=== PATIENT | female | born 1990 | race Caucasian/White ===

== ENCOUNTER 2019-04-27 06:57 | Day surgery (SDC) | payer OTHER ==
[~2019-04-27] VITALS: Ht 157.5 cm; Wt 59.5 kg
[2019-04-27] VITALS (16 sets, daily range): BP systolic 109–138; BP diastolic 50–72; PULSE 71–110; RESP 16–61; Ht 157.5 cm; Wt 59.5 kg
[~2019-04-27 06:57] MED LIST: IBUP-1542 PO; NO MEDS
[2019-04-27] MEDS ORDERED: ACETAMINOPHEN 500 MG TAB ONE (08:13)
[2019-04-27] MEDS ORDERED: ONDANSETRON 4 MG INJ ONE (08:20)
[2019-04-27] MEDS ORDERED: morphine 2 MG INJ IV PRN ×2 (08:30)
[2019-04-27] MEDS ORDERED: ONDANSETRON 4 MG INJ IV PRN (08:30)
[2019-04-27] MEDS ORDERED: EPHEDrine 25 MG/5 ML SYG IV PRN (08:30)
[2019-04-27] MEDS ORDERED: KETOROLAC 15 MG INJ IV PRN (08:30)
[2019-04-27] MEDS ORDERED: OXYCODONE/ACETAMINOPHEN (5/325) TAB PO PRN ×2 (08:30)
[2019-04-27] MEDS ORDERED: LEVALBUTEROL (NEB) 0.63 MG/3 ML AMP HHN PRN (08:30)
[2019-04-27] MEDS ORDERED: HYDROmorphONE 1 MG/5 ML IV SYRINGE IV PRN ×3 (08:30)
[2019-04-27] MEDS ORDERED: FENTAnyl 50 MCG/ML VIAL IV PRN ×2 (08:30)
[2019-04-27] MEDS ORDERED: ATROPINE 1 MG/10 ML SYRINGE IV PRN (08:30)
[2019-04-27] MEDS ORDERED: LABETALOL HCL 20MG INJ IV PRN (08:30)
[2019-04-27] MEDS ORDERED: ALBUTEROL 0.083% (NEB) 2.5 MG/3 ML AMP HHN PRN (08:30)
[2019-04-27] MEDS ORDERED: ACETAMINOPHEN 500 MG TAB PO ONE (08:30)
[2019-04-27] MEDS ORDERED: hydrALAzine 20 MG INJ IV PRN (08:30)
[2019-04-27] MEDS ORDERED: DIPHENHYDRAMINE 50 MG INJ IV PRN (08:30)
[2019-04-27] MEDS ORDERED: PROPOFOL 20 ML ONE (09:06)
[2019-04-27] MEDS ORDERED: MIDAZOLAM 1 MG/ML 2 ML INJ ONE (09:06)
[2019-04-27] MEDS ORDERED: CEFAZOLIN 1 GM INJ ONE (09:06)
[2019-04-27] MEDS ORDERED: LIDOCAINE 2% (SDV) 5 ML INJ ONE (09:06)
[2019-04-27] MEDS ORDERED: FAMOTIDINE 20 MG INJ ONE (09:07)
[2019-04-27] MEDS ORDERED: FENTAnyl 50 MCG/ML VIAL ONE (09:07)
[2019-04-27] MEDS ORDERED: DEXAMETHASONE 4 MG/ML 5 ML INJ ONE (09:07)
[2019-04-27] MEDS ORDERED: EPHEDrine 25 MG/5 ML SYG ONE (09:53)
== END 2019-04-27 12:16 | disposition home or self-care (01) ==
LOC: SDS 06:57
PROVIDERS: ATTEND Obstetrics & Gynecology
DX: O02.1 Missed abortion (principal)
CPT/HCPCS: 59820; 76817; 80053; 85025; 86850; 86900; 86901; 88305; J0690; J1100; J2250; J2405; J3010; Z7512; Z7610